=== PATIENT | male | born 1950 | race Caucasian/White ===

== ENCOUNTER 2024-05-18 09:52 | Inpatient (IN) ==
[2024-05-18] MEDS: SODIUM CHLORIDE 0.9% 1,000 ML IV SCH (10:22)
[2024-05-18] MEDS: ONDANSETRON INJ 2 MG/ML 2 ML VIAL IV STA (10:23)
[2024-05-18] MEDS: HYDROmorphone INJ 0.5 MG/0.5 ML SYR IV PRN (10:23)
[2024-05-18] MEDS: OPTIRAY 320 100ml IV ONE (10:33)
[2024-05-18 10:34] LABS: iSTAT Creatinine 1.2 mg/dl (0.6-1.3); iSTAT Hemoglobin 15.3 g/dl (14.0-18.0); iSTAT Ionized Calcium 1.19 mmol/l (1.12-1.32)
[2024-05-18 10:41] LABS: Basophils # (auto) 0.04 K/uL (0.00-0.20); Basophils % (auto) 0.3 %; Eosinophils # (auto) 0.02 K/uL (0.00-0.50); Eosinophils % (auto) 0.2 %; Hematocrit (blood only) 42.1 % (42.0-52.0); Hemoglobin 14.7 g/dl (14.0-18.0); Immature Granulocytes # (auto) 0.07 K/uL (0.01-0.20); Immature Granulocytes % (auto) 0.6 %; Lymphocytes # (auto) 1.11 K/uL (1.20-3.40); Mean Corpuscular Hemoglobin 34.4 pg (25.0-34.0); Mean Corpuscular Hgb Conc 34.9 g/dL (32.0-36.0); Mean Corpuscular Volume 98.6 fL (80.0-100.0); Mean Platelet Volume 9.9 fL (9.4-12.4); Monocytes # (auto) 0.51 K/uL (0.11-0.59); Monocytes % (auto) 4.1 %; Neutrophils # (auto) 10.55 K/uL (1.40-6.50); Neutrophils % (auto) 85.8 %; Platelet Count 218 K/uL (130-400); RDW Standard Deviation 46.7 fL (36.4-46.3); Red Blood Count 4.27 M/uL (4.70-6.10)
[2024-05-18 10:43] LABS: Alanine Aminotransferase 21 U/L (7-52); Albumin Globulin Ratio 1.6 (0.9-2); Albumin Level 4.5 gm/dl (3.4-5.0); Alkaline Phosphatase 120 U/L (34-104); Anion Gap 9 (3-11); Aspartate Aminotransferase 24 U/L (13-39); Bilirubin,Total 0.5 mg/dl (0.2-1.0); Blood Urea Nitrogen 16 mg/dl (6-23); Calcium 9.8 mg/dl (8.6-10.3); Carbon Dioxide 25 mmol/L (21-32); Chloride 103 mmol/L (98-107); Est GFR (African American) 73.5 ml/min; Est GFR (Non-African American) 63.4 ml/min; Globulin 2.8 gm/dl (2.5-4.0); Glucose 154 mg/dl (70-99(Fasting)); Potassium 4.8 mmol/L (3.5-5.1); Sodium 137 mmol/L (136-145); Total Protein 7.3 gm/dl (6.0-8.3)
[2024-05-18 11:07] LABS: Appearance Urine Clear (Clear); Bacteria Urine Automated None Seen (None Seen); Bilirubin Urine Negative (Negative); Blood Urine 1+ (Negative); Cast Urine Automated 0-2 /lpf (0-2); Color Urine Yellow; Epithelial Cell Urine Auto 0-2 /hpf (0-2); Glucose Urine UA Negative (Negative); Ketones Urine Trace (Negative); Leukocyte Esterase Urine Negative (Negative); Nitrite Urine Negative (Negative); Protein Urine Negative (Negative); Specific Gravity Urine 1.034 (1.000-1.030); Urobilinogen Urine Negative (Negative); WBC Urine Automated 0-5 /hpf (0-5)
--- NOTE | 2024-05-18 11:09 | CT Scan Report ---
CT head/brain wo con CLINICAL HISTORY: 73 years-old Male with Trauma. Acute head trauma status post fall TECHNIQUE: Multiple axial CT images of the head were obtained without contrast. A dose lowering tech nique was utilized adhering to the principles of ALARA. COMPARISON: CT cervical spine of same day FINDINGS: No acute intracranial hemorrhage, midline shift, intracranial mass, hydrocephalus, territorial ischem ia or abnormal extra-axial collection. Involutional changes with suggestion of chronic microvascular ischemic disease. The calvarium is intact. The paranasal sinuses, mastoid air cells, and middle ear cavities are clear . IMPRESSION: No acute intracranial abnormality or calvarial fracture. ACT 112: Negative or not required by law. The above report was generated using voice recognition software. It may contain grammatical, syntax o r spelling errors. Electronically signed by: Cameron Connolly M.D. 05/18/2024 11:07 AM
--- NOTE | 2024-05-18 11:13 | CT Scan Report ---
CT cervical spine wo con CLINICAL HISTORY: 73 years-old Male with Trauma. Acute neck injury COMPARISON: None. TECHNIQUE: Multiple axial CT images of the cervical spine were obtained without contrast. A dose low ering technique was utilized adhering to the principles of ALARA. FINDINGS: Multilevel degenerative changes. No acute fracture or subluxation identified. The cervical soft tissues appear unremarkable. No acute fracture or subluxation. Partially imaged ri ght apical 2.4 cm nodular density. IMPRESSION: 1. No acute cervical spine fracture or subluxation. 2. Partially imaged right upper lobe opacity. Please refer to the same day chest CT for additional fi ndings. ACT 112: Negative or not required by law. The above report was generated using voice recognition software. It may contain grammatical, syntax o r spelling errors. Electronically signed by: Cameron Connolly M.D. 05/18/2024 11:10 AM
--- NOTE | 2024-05-18 11:21 | CT Scan Report ---
CHEST CT WITH CONTRAST; CT ABDOMEN AND PELVIS WITH IV CONTRAST ONLY CT DOSE: 3286.91 mGy.cm HISTORY: Acute chest and abdominal trauma trauma TECHNIQUE: Multiaxial CT images of the chest, abdomen and pelvis were performed following the IV admi nistration of 94 cc of Optiray. A dose lowering technique was utilized adhering to the principles o f ALARA. COMPARISON: Chest radiograph 10/03/2010 FINDINGS: CT CHEST: Unremarkable thyroid. Borderline enlarged mediastinal and hilar lymph nodes measure up to 1 1 mm in the subcarinal distribution. Heart is normal in size without pericardial effusion. Extensive coronary artery calcifications. No thoracic aortic aneurysm. Unremarkable opacifies only artery. No pneumothorax region. Multifocal groundglass and alveolar opacities are noted predominantly within the right lower lobe and to a lesser extent within the right upper lobe and left lung. 5 mm fissural nodule the right middle lobe on image 128 suggestive of a benign lymph node. Right basilar mucous plu gging with tracheobronchial secretions. Unremarkable soft tissues. Healed chronic sternal and right r ib fractures. No definite acute fracture identified. CT ABDOMEN/PELVIS: No free air. Unremarkable spleen, pancreas and adrenal glands. Distended gallbladder with phthisis, i ntrahepatic and extrahepatic biliary ductal dilation. The common bile duct measures 10 mm transversel y. No definite choledocholithiasis identified. Patency of the hepatic and portal veins. No hydronephrosis. Prostamegaly. Nonspecific urinary bladder wall thickening. Atherosclerosis of the aorta without aneurysm. Infrarenal ectasia measuring up to 2.7 cm. Small fat filled umbilical hernia. No lymphadenopathy. Tiny hiatal hernia with mild distal esophageal wall thickening. Moderate colonic fecal retention. Normal appendix. No acute fracture. IMPRESSION: 1. Multifocal airspace opacities which are most pronounced in the right lower lobe may represent aspi ration versus multifocal pneumonia. 2. No acute posttraumatic intrathoracic, intra-abdominal or intrapelvic abnormality identified. 3. Distended gallbladder with cholelithiasis, intrahepatic and extrahepatic biliary ductal dilation. Correlate with serum bilirubin. 4. No bowel obstruction or bowel wall thickening. 5. Colonic diverticulosis. ACT 112: Negative or not required by law. Electronically signed by: Cameron Connolly M.D. 05/18/2024 11:19 AM
[2024-05-18] MEDS: cefTRIAXone SODIUM 2,000 MG/50 ML BAG IV STA (12:20)
--- NOTE | 2024-05-18 13:15 | Emergency Department Note ---
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 (closed head injury), Cervical strain, acute, Acute confusion Forms Stand Alone Forms: My [facility] Prescriptions Prescriptions: No Action furosemide 40 mg tablet 40 mg PO DAILY carvedilol 6.25 mg tablet 6.25 mg PO BID famotidine 40 mg tablet 40 mg PO DAILY citalopram 20 mg tablet 20 mg PO DAILY potassium chloride [Klor-Con M20] 20 mEq tablet,ER particles/crystals 20 meq PO DAILY tamsulosin 0.4 mg capsule 0.4 mg PO DAILY flecainide 50 mg tablet 50 mg PO BID lorazepam 1 mg tablet 1 mg PO TID tadalafil 10 mg tablet 10 mg PO DAILY Eliquis 5 mg tablet 5 mg PO BID oxycodone [OxyContin] 80 mg tablet,oral only,ext.rel.12 hr 80 mg PO BID PRN (Reason: Pain) Rolaids (calcium carbonate) 550 mg Tablet,Chewable 1,100 mg PO DAILY Referrals Referrals: Rodolfo Calix [Primary Care Provider] -
[2024-05-18] MEDS: DOXYCYCLINE HYCLATE 100 MG in DEXTROSE 5% MINI-B 100 ML IV STA (13:19)
[2024-05-18 13:36] LABS: Adenovirus PCR Not Detected (NotDetected); Bordetella parapertussis PCR Not Detected (NotDetected); Bordetella pertussis PCR Not Detected (NotDetected); Chlamydia pneumoniae PCR Not Detected (NotDetected); Coronavirus 229E PCR Not Detected (NotDetected); Coronavirus CoV-2 (COVID19)PCR Not Detected (NotDetected); Coronavirus HKU1 PCR Not Detected (NotDetected); Coronavirus NL63 PCR Not Detected (NotDetected); Coronavirus OC43PCR Not Detected (NotDetected); Human Metapneumovirus PCR Not Detected (NotDetected); Influenza A PCR Not Detected (NotDetected); Influenza B PCR Not Detected (NotDetected); Mycoplasma pneumoniae PCR Not Detected (NotDetected); Parainfluenza Virus 1 PCR Not Detected (NotDetected); Parainfluenza Virus 2 PCR Not Detected (NotDetected); Parainfluenza Virus 3 PCR Not Detected (NotDetected); Parainfluenza Virus 4 PCR Not Detected (NotDetected); Respiratory Syncytial VirusPCR Not Detected (NotDetected); Rhinovirus/Enterovirus PCR Not Detected (NotDetected)
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
[2024-05-18] MEDS: KETOROLAC TROMETHAMINE 15 MG/ML VIAL IV ONE ×2 (14:45→23:35)
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
[2024-05-18] MEDS ORDERED: AZITHROMYCIN 500 MG in DEXTROSE 5% 250 ML IV SCH (18:00)
[2024-05-18] MEDS: oxyCODONE HCL IR 5 MG TAB (IMMEDIATE RELEASE) PO PRN (18:38)
[2024-05-18] MEDS: TAMSULOSIN HCL 0.4 MG CAP PO SCH (18:39)
[2024-05-18] MEDS: LORazepam 1 MG TAB PO SCH (18:39)
[2024-05-18] MEDS: POTASSIUM CHLORIDE CRTAB 20 MEQ TABCR PO SCH (18:39)
--- NOTE | 2024-05-18 20:31 | Electrocardiogram Report ---
Test Reason : Blood Pressure : / mmHG Vent. Rate : 118 BPM Atrial Rate : 000 BPM P-R Int : 000 ms QRS Dur : 086 ms QT Int : 318 ms P-R-T Axes : 000 -26 -04 degrees QTc Int : 445 ms Atrial fibrillation with rapid ventricular response Nonspecific ST abnormality Abnormal ECG When compared with ECG of 28-SEP-2010 21:38, Atrial fibrillation has replaced Sinus rhythm Vent. rate has increased BY 42 BPM Confirmed by Petar Lilly ([id number]) on 05/18/2024 8:31:17 PM Referred By: REFERRED SELF Confirmed By:Petar Lilly
[2024-05-18] MEDS: ACETAMINOPHEN 500 MG TAB PO ONE (20:59)
[2024-05-18] MEDS: CITALOPRAM 20 MG TAB PO SCH (21:00)
[2024-05-18] MEDS: FLECAINIDE ACETATE 100 MG TABLET PO SCH (21:00)
[2024-05-18] MEDS: APIXABAN 5 MG TABLET PO SCH (21:02)
[2024-05-18] MEDS: FAMOTIDINE 40 MG TABLET PO SCH (21:02)
[2024-05-18] MEDS: carvediloL 6.25 MG TAB PO SCH (21:03)
[2024-05-18] MEDS: HYDROmorphone INJ 0.5 MG/0.5 ML SYR IV STA (22:22)
[2024-05-19] MEDS ORDERED: NALOXONE HCL 0.4 MG/1 ML VIAL/CARP IV PRN (00:36)
[2024-05-19] MEDS: HYDROmorphone INJ 1 MG/ML SYRINGE IV STA ×4 (01:00→16:34)
[2024-05-19] MEDS: DOXYCYCLINE HYCLATE 100 MG in D5W MINI-B 100 ML (Q12H) IV SCH (01:03)
[2024-05-19] MEDS ORDERED: MAGNESIUM HYDROXIDE SUSP 30 ML UDC PO PRN (05:56)
[2024-05-19] MEDS: MAGNESIUM HYDROXIDE SUSP 30 ML UDC PO ONE (06:36)
--- NOTE | 2024-05-19 06:36 | Communication Note ---
Date of Service: May 19, 2024 For refractory "9/10" neck pain overnight, patient received the following: -P.o. Tylenol 1000 mg -IV hydromorphone 0.5 mg -IV hydromorphone 1 mg x 3, and -IV Toradol 15 mg Reviewed patient's PDMP at home, patient takes OxyContin 80 mg twice daily (240 MME) for pain before administering IV hydromorphone 1 mg doses. Recommend schedule baseline analgesic (i.e. Tylenol 1000 mg every 8 hours), adjusting p.o. oxycodone dose from 10 mg every 6 hours as needed to be closer to home p.o. oxycodone dose. Resident Activity Tracking Resident Involvement: Resident Care Provided Care Provided: Adult Hospital Medicine
[2024-05-19 06:52] LABS: Hematocrit (blood only) 31.9 % (42.0-52.0); Hemoglobin 10.7 g/dl (14.0-18.0); Mean Corpuscular Hemoglobin 33.9 pg (25.0-34.0); Mean Corpuscular Hgb Conc 33.5 g/dL (32.0-36.0); Mean Corpuscular Volume 100.9 fL (80.0-100.0); Mean Platelet Volume 10.4 fL (9.4-12.4); Platelet Count 155 K/uL (130-400); RDW Coefficient of Variation 13.2 % (11.5-14.5); RDW Standard Deviation 49.1 fL (36.4-46.3); Red Blood Count 3.16 M/uL (4.70-6.10); White Blood Count 7.82 K/ul (4.8-10.8)
[2024-05-19 07:21] LABS: BUN Creatinine Ratio 17.9 (10-20); Calcium 8.1 mg/dl (8.6-10.3); Creatinine Clr Calc Pharmacy 82.3 ml/min; Est GFR (African American) 91.7 ml/min; Est GFR (Non-African American) 79.1 ml/min; Potassium 3.9 mmol/L (3.5-5.1)
[2024-05-19] MEDS: KETOROLAC TROMETHAMINE 15 MG/ML VIAL IV PRN (07:54)
[2024-05-19] MEDS: CALCIUM CARBONATE 1250MG TAB PO SCH (07:55)
[2024-05-19] MEDS: oxyCODONE HCL 20 MG TABCR (OxyCONTIN) PO SCH (10:26)
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
[2024-05-19] MEDS: POLYETHYLENE (MIRALAX) 17 GM PACK PO SCH (12:00)
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
[2024-05-19] MEDS: cefTRIAXone SODIUM 2,000 MG/50 ML BAG IV SCH (13:16)
[2024-05-19] MEDS: CALCIUM CARBONATE 500 MG CHEWABLE TAB PO PRN (19:57)
[2024-05-19] MEDS: LORazepam 1 MG in SYRINGE 0.5 ML IV PRN (20:31)
[2024-05-19] MEDS ORDERED: Ativan IV Alcohol Withdrawal--Active Protocol IV PRN (22:08)
[2024-05-19] MEDS: LORazepam 2 MG in SYRINGE 1 ML IV PRN (22:53)
[2024-05-19] MEDS: LORazepam 3 MG in SYRINGE 1.5 ML IV PRN (23:29)
[2024-05-20] MEDS ORDERED: LORazepam 1 MG in SYRINGE 0.5 ML IV ONE (00:15)
[2024-05-20] MEDS: LORazepam 3 MG in SYRINGE 1.5 ML IV ONE (00:25)
[2024-05-20] MEDS: LORazepam 1 MG in SYRINGE 0.5 ML IV PRN (01:18)
[2024-05-20 07:31] LABS: Hematocrit (blood only) 33.7 % (42.0-52.0); Hemoglobin 11.1 g/dl (14.0-18.0); Mean Corpuscular Hemoglobin 33.8 pg (25.0-34.0); Mean Corpuscular Hgb Conc 32.9 g/dL (32.0-36.0); Mean Corpuscular Volume 102.7 fL (80.0-100.0); Mean Platelet Volume 10.3 fL (9.4-12.4); Platelet Count 190 K/uL (130-400); RDW Standard Deviation 49.4 fL (36.4-46.3); Red Blood Count 3.28 M/uL (4.70-6.10); White Blood Count 6.87 K/ul (4.8-10.8)
[2024-05-20 07:46] LABS: BUN Creatinine Ratio 15.5 (10-20); Calcium 8.8 mg/dl (8.6-10.3); Est GFR (African American) 83.1 ml/min; Est GFR (Non-African American) 71.7 ml/min; Potassium 4.1 mmol/L (3.5-5.1)
[2024-05-20] MEDS: FOLIC ACID 1 MG TAB PO SCH (09:03)
[2024-05-20] MEDS: THIAMINE HCL 100 MG TAB PO SCH (09:03)
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
[2024-05-20] MEDS: KETOROLAC TROMETHAMINE 15 MG/ML VIAL IV PRN (19:04)
[2024-05-20] MEDS: LACTATED RINGER'S 1,000 ML IV ONE (21:44)
[2024-05-20 22:25] LABS: BUN Creatinine Ratio 15.5 (10-20); Calcium 9.4 mg/dl (8.6-10.3); Est GFR (African American) 83.1 ml/min; Est GFR (Non-African American) 71.7 ml/min; Magnesium 2.1 mg/dl (1.7-2.4); Potassium 4.2 mmol/L (3.5-5.1)
[2024-05-21 06:29] LABS: Hematocrit (blood only) 33.6 % (42.0-52.0); Hemoglobin 11.2 g/dl (14.0-18.0); Mean Corpuscular Hemoglobin 33.8 pg (25.0-34.0); Mean Corpuscular Hgb Conc 33.3 g/dL (32.0-36.0); Mean Corpuscular Volume 101.5 fL (80.0-100.0); Mean Platelet Volume 10.4 fL (9.4-12.4); Platelet Count 213 K/uL (130-400); RDW Coefficient of Variation 12.8 % (11.5-14.5); RDW Standard Deviation 47.8 fL (36.4-46.3); Red Blood Count 3.31 M/uL (4.70-6.10); White Blood Count 5.95 K/ul (4.8-10.8)
--- NOTE | 2024-05-21 06:33 | Electrocardiogram Report ---
Test Reason : Blood Pressure : / mmHG Vent. Rate : 121 BPM Atrial Rate : 117 BPM P-R Int : 000 ms QRS Dur : 090 ms QT Int : 278 ms P-R-T Axes : 000 -19 -23 degrees QTc Int : 394 ms Poor data quality, interpretation may be adversely affected Atrial fibrillation with rapid ventricular response Nonspecific ST abnormality Abnormal ECG When compared with ECG of 18-MAY-2024 10:20, ST now depressed in Anterolateral leads Confirmed by Petar Lilly ([id number]) on 05/21/2024 6:33:26 AM Referred By: REFERRED SELF Confirmed By:Petar Lilly
[2024-05-21 06:49] LABS: Calcium 8.7 mg/dl (8.6-10.3); Creatinine Clr Calc Pharmacy 72.2 ml/min; Est GFR (African American) 86.2 ml/min; Est GFR (Non-African American) 74.3 ml/min; Potassium 4.2 mmol/L (3.5-5.1)
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
[2024-05-21] MEDS: bisacodyL 10 MG SUPP PR STA (19:04)
[2024-05-21] MEDS: DOXYCYCLINE HYCLATE 100 MG CAP PO SCH (21:03)
[2024-05-22] MEDS: HYDROmorphone INJ 1 MG/ML SYRINGE IV STA (04:09)
[2024-05-22] MEDS: KETOROLAC TROMETHAMINE 15 MG/ML VIAL IV ONE (08:20)
[2024-05-22 09:20] LABS: BUN Creatinine Ratio 15.8 (10-20); Calcium 8.8 mg/dl (8.6-10.3); Creatinine Clr Calc Pharmacy 71.5 ml/min; Est GFR (African American) 85.1 ml/min; Est GFR (Non-African American) 73.4 ml/min; Potassium 4.4 mmol/L (3.5-5.1)
[2024-05-22] MEDS: cloNIDine HCL 0.1 MG TAB PO SCH (09:36)
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
[2024-05-22] MEDS: OLANZapine 10 MG/2.1 ML SDV IM STA (17:42)
[2024-05-22] MEDS: OLANZAPINE 2.5 MG TAB PO SCH (20:30)
[2024-05-22] MEDS: LORazepam 2 MG in SYRINGE 1 ML IV STA (22:09)
[2024-05-23] MEDS: OLANZapine 10 MG/2.1 ML SDV IM STA ×3 (00:51→23:55)
[2024-05-23 06:35] LABS: Hematocrit (blood only) 32.6 % (42.0-52.0); Hemoglobin 10.9 g/dl (14.0-18.0); Mean Corpuscular Hemoglobin 33.5 pg (25.0-34.0); Mean Corpuscular Hgb Conc 33.4 g/dL (32.0-36.0); Mean Corpuscular Volume 100.3 fL (80.0-100.0); Mean Platelet Volume 9.6 fL (9.4-12.4); Platelet Count 232 K/uL (130-400); RDW Coefficient of Variation 12.7 % (11.5-14.5); RDW Standard Deviation 46.9 fL (36.4-46.3); Red Blood Count 3.25 M/uL (4.70-6.10)
[2024-05-23 06:58] LABS: Calcium 8.7 mg/dl (8.6-10.3); Potassium 4.4 mmol/L (3.5-5.1)
[2024-05-23 07:03] LABS: BUN Creatinine Ratio 15.1 (10-20); Creatinine Clr Calc Pharmacy 68.1 ml/min; Est GFR (African American) 80.3 ml/min; Est GFR (Non-African American) 69.3 ml/min
[2024-05-23] MEDS: LORazepam 1 MG TAB PO SCH (08:19)
--- NOTE | 2024-05-23 10:08 | Hospitalist Consultation ---
Date of Consultation May 23, 2024 History of Present Illness Attending Physician: Herbert Rutherford MD Allergies Allergy/AdvReac Type Severity Reaction Status Date / Time gabapentin Allergy Unknown Verified 05/18/24 13:27 Hydantoins Allergy Unknown Verified 05/18/24 13:27 phenytoin Allergy Unknown Verified 05/18/24 13:27 Home Medications Medication Instructions Recorded Confirmed Type apixaban 5 mg tablet (Eliquis) 5 mg PO BID 05/18/24 05/18/24 History calcium carbonate 550 mg chewable 1,100 mg PO DAILY 05/18/24 05/18/24 History tablet carvedilol 6.25 mg tablet 6.25 mg PO BID 05/18/24 05/18/24 History citalopram 20 mg tablet 20 mg PO DAILY 05/18/24 05/18/24 History famotidine 40 mg tablet 40 mg PO DAILY 05/18/24 05/18/24 History flecainide 50 mg tablet 50 mg PO BID 05/18/24 05/18/24 History furosemide 40 mg tablet 40 mg PO DAILY 05/18/24 05/18/24 History lorazepam 1 mg tablet 1 mg PO TID 05/18/24 05/18/24 History oxycodone 80 mg tablet,crush 80 mg PO BID PRN Pain 05/18/24 05/18/24 History resistant,extended release 12 hr (OxyContin) potassium chloride 20 mEq 20 meq PO DAILY 05/18/24 05/18/24 History tablet,extended release(part/cryst) (Klor-Con M) tadalafil 10 mg tablet 10 mg PO DAILY 05/18/24 05/18/24 History tamsulosin 0.4 mg capsule 0.4 mg PO DAILY 05/18/24 05/18/24 History Patient History Social History Smoking Status: Never smoker Tobacco Type: Smokeless Tobacco (Dip or Chew) Do You Dip or Chew Tobacco: Yes; Hx Alcohol Use: Yes Alcohol type: wine Hx Substance Use: No Preferred Language: Palestinian Communication Ability: Impaired Care Technician Required: No Beliefs That Will Affect Care: None Current Living Situation: Spouse Feels Safe at Home: Yes Assistive Devices: Cane and Walker Review of Systems Review of Systems: Constitutional: No Weight Change, No Fever, No Chills, No Night Sweats, No Fatigue, No Malaise ENT/Mouth: No Hearing Changes, No Ear Pain, No Nasal Congestion, No Sinus Pain, No Hoarseness, No sore throat, No Rhinorrhea Eyes: No Eye Pain, No Swelling, No Redness, No Foreign Body, No Discharge, No Vision Changes Cardiovascular: No Chest Pain, No SOB, No PND, No Dyspnea on Exertion, No Orthopnea, No Claudication, No Edema, No Palpitations Respiratory: No Cough, No Sputum, No Wheezing, No Smoke Exposure, No Dyspnea Gastrointestinal: No Nausea, No Vomiting, No Diarrhea, No Constipation, No Pain, No Heartburn, No Anorexia, No Dysphagia, No Hematochezia, No Melena, No Flatulence, No Jaundice Genitourinary: No Dysmenorrhea, No DUB, No Dyspareunia, No Dysuria, No Urinary Frequency, No Hematuria, No Urinary Incontinence, No Urgency, No Flank Pain, No Urinary Flow Changes, No Hesitancy Musculoskeletal: No Arthralgias, No Myalgias, No Joint Swelling, No Joint Stiffness, No Back Pain, No Neck Pain, No Injury History Skin: No Skin Lesions, No Pruritis, No Hair Changes, No Breast/Skin Changes, No Nipple Discharge Neuro: No Weakness, No Numbness, No Paresthesias, No Loss of Consciousness, No Syncope, No Dizziness, No Headache, No Coordination Changes, No Recent Falls Psych: No Anxiety/Panic, No Depression, No Insomnia, No Personality Heme/Lymph: No Bruising, No Bleeding, No Lymphadenopathy Endocrine: No Polyuria, No Polydipsia, No Temperature Intolerance Constitutional: no sweats and no weakness Results & Data Results & Data Vital Signs (Past 12 Hours) Vital Signs Temp Pulse Pulse Pulse Resp BP BP 05/23/24 08:24 57 L 175/72 H 05/23/24 07:11 36.4 C L 58 L 21 191/76 H 05/23/24 03:21 60 22 162/78 H 05/22/24 23:17 47 L Pulse Ox O2 Del Method O2 Flow Rate 05/23/24 08:24 05/23/24 07:11 96 Nasal Cannula 3 05/23/24 03:21 92 Nasal Cannula 3 05/22/24 23:17 PG Care Time/CCT Total # of Minutes Spent Total Time Spent with Patient: Total time spent is greater than 50% in coordination of care (as documented) at patient's floor/unit and/or counseling patient: Coding
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
[2024-05-23] MEDS: ACETAMINOPHEN 325 MG TAB PO ONE (16:14)
[2024-05-23] MEDS: OLANZAPINE 2.5 MG TAB PO STA (18:20)
[2024-05-23] MEDS: traZODone HCL 50 MG TAB PO ONE (22:40)
[2024-05-24] MEDS ORDERED: CALCIUM GLUCONATE 1,000 MG/60 ML BAG IV SCH (00:30)
[2024-05-24 06:05] LABS: BUN Creatinine Ratio 13.3 (10-20); Creatinine Clr Calc Pharmacy 63.9 ml/min; Est GFR (African American) 74.3 ml/min; Est GFR (Non-African American) 64.1 ml/min
[2024-05-24] MEDS: cloNIDine HCL 0.1 MG TAB PO SCH (08:48)
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
[2024-05-24] MEDS: amLODIPine BESYLATE 5 MG TAB PO ONE (12:01)
[2024-05-25] MEDS: OLANZapine 10 MG/2.1 ML SDV IM PRN (00:51)
[2024-05-25 07:03] LABS: BUN Creatinine Ratio 12.9 (10-20); Calcium 8.9 mg/dl (8.6-10.3); Creatinine Clr Calc Pharmacy 71.5 ml/min; Est GFR (African American) 85.1 ml/min; Est GFR (Non-African American) 73.4 ml/min
[2024-05-25] MEDS: amLODIPine BESYLATE 5 MG TAB PO SCH (09:40)
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
[2024-05-25] MEDS: amLODIPine BESYLATE 5 MG TAB PO ONE (12:47)
[2024-05-26] MEDS: OLANZapine 10 MG/2.1 ML SDV IM STA ×2 (01:19→02:54)
[2024-05-26 07:31] LABS: Hematocrit (blood only) 39.1 % (42.0-52.0); Hemoglobin 13.3 g/dl (14.0-18.0); Mean Corpuscular Hemoglobin 33.7 pg (25.0-34.0); Mean Platelet Volume 9.6 fL (9.4-12.4); Platelet Count 233 K/uL (130-400); RDW Coefficient of Variation 12.1 % (11.5-14.5); RDW Standard Deviation 44.6 fL (36.4-46.3); Red Blood Count 3.95 M/uL (4.70-6.10); White Blood Count 6.43 K/ul (4.8-10.8)
[2024-05-26 07:47] LABS: BUN Creatinine Ratio 15.5 (10-20); Calcium 8.8 mg/dl (8.6-10.3); Est GFR (African American) 100.7 ml/min; Est GFR (Non-African American) 86.9 ml/min
[2024-05-26] MEDS: amLODIPine BESYLATE 5 MG TAB PO SCH (09:01)
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
[2024-05-26] MEDS: ACETAMINOPHEN 325 MG TAB PO ONE (15:41)
[2024-05-26] MEDS: LORazepam 1 MG TAB PO SCH (20:02)
[2024-05-27] MEDS: oxyCODONE HCL 20 MG TABCR (OxyCONTIN) PO SCH (09:08)
[2024-05-27 09:27] LABS: Calcium 9.2 mg/dl (8.6-10.3); Potassium 4.5 mmol/L (3.5-5.1)
[2024-05-27 09:33] LABS: BUN Creatinine Ratio 17.6 (10-20); Creatinine Clr Calc Pharmacy 79.4 ml/min; Est GFR (African American) 96.6 ml/min; Est GFR (Non-African American) 83.3 ml/min
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
[2024-05-27] MEDS: KETOROLAC TROMETHAMINE 15 MG/ML VIAL IV PRN (11:31)
[2024-05-27 13:02] LABS: Mycoplasma pneumoniae Ab, IgG 2.03 (<=0.90); Mycoplasma pneumoniae Ab, IgM 699 U/mL (<770); Pneumococcal IgG Type 1 0.1 mcg/mL (>=1.0); Pneumococcal IgG Type 12 (12F) <0.1 mcg/mL (>=1.0); Pneumococcal IgG Type 14 <0.1 mcg/mL (>=1.0); Pneumococcal IgG Type 17 (17F) 0.1 mcg/mL (>=1.0); Pneumococcal IgG Type 19 (19F) 0.1 mcg/mL (>=1.0); Pneumococcal IgG Type 2 <0.1 mcg/mL (>=1.0); Pneumococcal IgG Type 20 1.4 mcg/mL (>=1.0); Pneumococcal IgG Type 22 (22F) 0.1 mcg/mL (>=1.0); Pneumococcal IgG Type 23 (23F) <0.1 mcg/mL (>=1.0); Pneumococcal IgG Type 26 (6B) <0.1 mcg/mL (>=1.0); Pneumococcal IgG Type 3 <0.1 mcg/mL (>=1.0); Pneumococcal IgG Type 34 (10A) <0.1 mcg/mL (>=1.0); Pneumococcal IgG Type 4 <0.1 mcg/mL (>=1.0); Pneumococcal IgG Type 43 (11A) <0.1 mcg/mL (>=1.0); Pneumococcal IgG Type 5 <0.1 mcg/mL (>=1.0); Pneumococcal IgG Type 51 (7F) <0.1 mcg/mL (>=1.0); Pneumococcal IgG Type 54 (15B) 1.2 mcg/mL (>=1.0); Pneumococcal IgG Type 56 (18C) 1.4 mcg/mL (>=1.0); Pneumococcal IgG Type 57 (19A) 0.2 mcg/mL (>=1.0); Pneumococcal IgG Type 68 (9V) <0.1 mcg/mL (>=1.0); Pneumococcal IgG Type 70 (33F) 0.2 mcg/mL (>=1.0); Pneumococcal IgG Type 8 0.1 mcg/mL (>=1.0); Pneumococcal IgG Type 9 (9N) 1.5 mcg/mL (>=1.0)
--- NOTE | 2024-05-27 17:02 | Electrocardiogram Report ---
Test Reason : Blood Pressure : */* mmHG Vent. Rate : 148 BPM Atrial Rate : 141 BPM P-R Int : * ms QRS Dur : 84 ms QT Int : 314 ms P-R-T Axes : * -14 44 degrees QTcB Int : 492 ms Poor data quality, interpretation may be adversely affected Atrial fibrillation with rapid ventricular response ST depression, consider subendocardial injury Abnormal ECG When compared with ECG of 20-MAY-2024 17:30, Nonspecific T wave abnormality has replaced inverted T waves in Inferior leads Confirmed by Chilango Dickinson ([id number] on 05/27/2024 5:02:09 PM Referred By: REFERRED SELF Confirmed By: Chilango Dickinson
[2024-05-27] MEDS: carvediloL 12.5 MG TAB PO SCH (20:58)
[2024-05-28 07:10] LABS: Hematocrit (blood only) 39.1 % (42.0-52.0); Hemoglobin 13.3 g/dl (14.0-18.0); Mean Corpuscular Hemoglobin 33.2 pg (25.0-34.0); Mean Corpuscular Volume 97.5 fL (80.0-100.0); Mean Platelet Volume 10.1 fL (9.4-12.4); Platelet Count 320 K/uL (130-400); RDW Coefficient of Variation 12.2 % (11.5-14.5); RDW Standard Deviation 44.6 fL (36.4-46.3); Red Blood Count 4.01 M/uL (4.70-6.10); White Blood Count 7.52 K/ul (4.8-10.8)
[2024-05-28 07:34] LABS: BUN Creatinine Ratio 15.8 (10-20); Calcium 9.7 mg/dl (8.6-10.3); Est GFR (African American) 91.7 ml/min; Est GFR (Non-African American) 79.1 ml/min; Potassium 4.2 mmol/L (3.5-5.1)
[2024-05-28] MEDS ORDERED: LORazepam 1 MG TAB PO PRN (08:13)
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
[2024-05-28] MEDS: carvediloL 12.5 MG TAB PO ONE (09:02)
[2024-05-28] MEDS: oxyCODONE HCL 20 MG TABCR (OxyCONTIN) PO ONE ×2 (09:57→16:41)
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
[2024-05-28] MEDS: carvediloL 3.125 MG TAB PO ONE (14:00)
[2024-05-28 15:10] LABS: Magnesium 2.1 mg/dl (1.7-2.4)
--- NOTE | 2024-05-28 15:26 | Communication Note ---
Date of Service: May 28, 2024 Updated daughter Jory on plan of care. 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 Concerns about alcohol use/discussed moving to monitored bed for closer monitoring and management of his afib, also checking ECHO (tech in room now). RN to give dose toradol/lidocaine patch ordered for neck and will monitor. No CP/SOB at present. Remains afib, rates 90-120s on monitor. Adding lopressor IV as needed. Daughter also reports patient does chew decent amount of snuff, will also order nicotine patch.
--- NOTE | 2024-05-28 16:23 | XCELERA ---
[id number]
[2024-05-28] MEDS: LIDOCAINE 5% 1 PATCH TD SCH (16:40)
[2024-05-28] MEDS: NICOTINE 21 MG/24 HR TDSY TD SCH (16:41)
[2024-05-28] MEDS: PANTOprazole 40 MG TAB PO SCH (16:41)
--- NOTE | 2024-05-28 17:28 | Electrocardiogram Report ---
Test Reason : Blood Pressure : */* mmHG Vent. Rate : 135 BPM Atrial Rate : 270 BPM P-R Int : * ms QRS Dur : 108 ms QT Int : 354 ms P-R-T Axes : * -9 56 degrees QTcB Int : 531 ms Atrial flutter with 2:1 A-V conduction Abnormal ECG When compared with ECG of 26-May-2024 08:59, Atrial flutter has replaced Atrial fibrillation Confirmed by Chilango Dickinson ([id number]) on 05/28/2024 5:28:17 PM Referred By: REFERRED SELF Confirmed By: Chilango Dickinson
[2024-05-28] MEDS: THIAMINE HCL 200 MG in SODIUM CHLORIDE 0.9% 50 ML IV SCH (17:50)
[2024-05-28] MEDS: oxyCODONE HCL 20 MG TABCR (OxyCONTIN) PO SCH (20:07)
[2024-05-28] MEDS ORDERED: carvediloL 25 MG TAB PO SCH (21:00)
[2024-05-29] MEDS: METOPROLOL TARTRATE 1 MG/ML VIAL IV PRN (04:49)
[2024-05-29 07:59] LABS: Basophils # (auto) 0.04 K/uL (0.00-0.20); Basophils % (auto) 0.7 %; Eosinophils % (auto) 3.5 %; Hematocrit (blood only) 37.2 % (42.0-52.0); Hemoglobin 12.4 g/dl (14.0-18.0); Immature Granulocytes # (auto) 0.03 K/uL (0.01-0.20); Immature Granulocytes % (auto) 0.5 %; Lymphocytes % (auto) 30.1 %; Mean Corpuscular Hemoglobin 33.1 pg (25.0-34.0); Mean Corpuscular Hgb Conc 33.3 g/dL (32.0-36.0); Mean Corpuscular Volume 99.2 fL (80.0-100.0); Mean Platelet Volume 9.9 fL (9.4-12.4); Monocytes # (auto) 0.38 K/uL (0.11-0.59); Monocytes % (auto) 6.7 %; Neutrophils # (auto) 3.29 K/uL (1.40-6.50); Neutrophils % (auto) 58.5 %; Platelet Count 287 K/uL (130-400); RDW Coefficient of Variation 12.5 % (11.5-14.5); RDW Standard Deviation 45.8 fL (36.4-46.3); Red Blood Count 3.75 M/uL (4.70-6.10); White Blood Count 5.64 K/ul (4.8-10.8)
[2024-05-29 08:11] LABS: Albumin Globulin Ratio 1.5 (0.9-2); Albumin Level 3.7 gm/dl (3.4-5.0); BUN Creatinine Ratio 21.7 (10-20); Bilirubin,Total 0.4 mg/dl (0.2-1.0); Calcium 9.1 mg/dl (8.6-10.3); Est GFR (African American) 101.2 ml/min; Est GFR (Non-African American) 87.3 ml/min; Globulin 2.4 gm/dl (2.5-4.0); Magnesium 2.1 mg/dl (1.7-2.4); Potassium 3.9 mmol/L (3.5-5.1); Total Protein 6.1 gm/dl (6.0-8.3)
[2024-05-29] MEDS: CYANOCOBALAMIN (B-12) 500 MCG TABLET PO SCH (08:53)
--- NOTE | 2024-05-29 09:02 | Electrocardiogram Report ---
Test Reason : Blood Pressure : */* mmHG Vent. Rate : 53 BPM Atrial Rate : 53 BPM P-R Int : 154 ms QRS Dur : 92 ms QT Int : 470 ms P-R-T Axes : 46 0 49 degrees QTcB Int : 441 ms Sinus bradycardia Otherwise normal ECG When compared with ECG of 28-May-2024 08:30, Sinus rhythm has replaced Atrial flutter Vent. rate has decreased by [address] no longer elevated in Inferior leads Confirmed by Chilango Dickinson ([id number]) on 05/29/2024 9:01:49 AM Referred By: REFERRED SELF Confirmed By: Chilango Dickinson
[2024-05-29] MEDS: carvediloL 6.25 MG TAB PO SCH (11:23)
[2024-05-29] MEDS: KETOROLAC TROMETHAMINE 15 MG/ML VIAL IV PRN (11:23)
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
[2024-05-29] MEDS: HYDROmorphone INJ 1 MG/ML SYRINGE IV STA ×2 (13:26→21:58)
[2024-05-29] MEDS: PNEUMOCOCCAL VACCINE (PCV20) 20-VAL CONJ-DIP CRM/PF 0.5 ML SYR IM ONE (17:15)
[2024-05-29] MEDS: ACETAMINOPHEN 325 MG TAB PO PRN (19:58)
[2024-05-30] MEDS: THIAMINE HCL 100 MG TAB PO SCH (07:13)
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
[2024-05-30] MEDS: MELATONIN 3 MG TAB PO PRN (22:46)
[2024-05-30] MEDS: OLANZapine 10 MG/2.1 ML SDV IM STA (23:35)
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
[2024-05-31] MEDS: OLANZapine 10 MG/2.1 ML SDV IM PRN (18:27)
[2024-05-31] MEDS: OLANZapine 5 MG TABLET PO SCH (20:39)
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
[2024-06-02] MEDS: carvediloL 3.125 MG TAB PO SCH (17:12)
[2024-06-02] MEDS: traMADol HCL 50 MG TABLET PO PRN (17:12)
[2024-06-03] MEDS: OLANZapine 10 MG/2.1 ML SDV IM STA (01:22)
[2024-06-03] MEDS: LORazepam 1 MG in SYRINGE 0.5 ML IV STA ×2 (05:15→22:59)
[2024-06-03 09:31] LABS: BUN Creatinine Ratio 17.2 (10-20); Calcium 9.4 mg/dl (8.6-10.3); Creatinine Clr Calc Pharmacy 72.9 ml/min; Est GFR (African American) 87.2 ml/min; Est GFR (Non-African American) 75.2 ml/min; Magnesium 2.2 mg/dl (1.7-2.4); Potassium 4.6 mmol/L (3.5-5.1)
[2024-06-03 09:32] LABS: Hematocrit (blood only) 36.2 % (42.0-52.0); Hemoglobin 11.9 g/dl (14.0-18.0); Mean Corpuscular Hgb Conc 32.9 g/dL (32.0-36.0); Mean Corpuscular Volume 100.3 fL (80.0-100.0); Platelet Count 332 K/uL (130-400); RDW Coefficient of Variation 12.1 % (11.5-14.5); RDW Standard Deviation 45.4 fL (36.4-46.3); Red Blood Count 3.61 M/uL (4.70-6.10); White Blood Count 5.42 K/ul (4.8-10.8)
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
[2024-06-03] MEDS: oxyCODONE HCL IR 5 MG TAB (IMMEDIATE RELEASE) PO PRN (15:06)
[2024-06-03] MEDS: OLANZapine 10 MG/2.1 ML SDV IM ONE (23:54)
[2024-06-04] MEDS: FUROSEMIDE 40 MG TAB PO SCH (08:05)
[2024-06-04] MEDS: CITALOPRAM 20 MG TAB PO SCH (08:05)
[2024-06-04 09:03] LABS: Basophils # (auto) 0.04 K/uL (0.00-0.20); Basophils % (auto) 0.4 %; Eosinophils # (auto) 0.07 K/uL (0.00-0.50); Eosinophils % (auto) 0.7 %; Hematocrit (blood only) 42.1 % (42.0-52.0); Hemoglobin 14.2 g/dl (14.0-18.0); Immature Granulocytes # (auto) 0.04 K/uL (0.01-0.20); Immature Granulocytes % (auto) 0.4 %; Lymphocytes # (auto) 0.83 K/uL (1.20-3.40); Lymphocytes % (auto) 8.4 %; Mean Corpuscular Hgb Conc 33.7 g/dL (32.0-36.0); Mean Corpuscular Volume 97.9 fL (80.0-100.0); Mean Platelet Volume 9.6 fL (9.4-12.4); Monocytes # (auto) 0.52 K/uL (0.11-0.59); Monocytes % (auto) 5.3 %; Neutrophils # (auto) 8.37 K/uL (1.40-6.50); Neutrophils % (auto) 84.8 %; Platelet Count 352 K/uL (130-400); RDW Coefficient of Variation 12.1 % (11.5-14.5); RDW Standard Deviation 43.8 fL (36.4-46.3); White Blood Count 9.87 K/ul (4.8-10.8)
[2024-06-04 09:20] LABS: Albumin Globulin Ratio 1.4 (0.9-2); Albumin Level 4.2 gm/dl (3.4-5.0); BUN Creatinine Ratio 16.9 (10-20); Bilirubin,Total 0.4 mg/dl (0.2-1.0); Calcium 9.8 mg/dl (8.6-10.3); Creatinine Clr Calc Pharmacy 81.1 ml/min; Est GFR (African American) 98.3 ml/min; Est GFR (Non-African American) 84.8 ml/min; Magnesium 1.9 mg/dl (1.7-2.4); Potassium 4.6 mmol/L (3.5-5.1); Total Protein 7.2 gm/dl (6.0-8.3)
--- NOTE | 2024-06-04 10:38 | Electrocardiogram Report ---
Test Reason : Blood Pressure : */* mmHG Vent. Rate : 61 BPM Atrial Rate : 61 BPM P-R Int : 166 ms QRS Dur : 92 ms QT Int : 418 ms P-R-T Axes : 45 -7 36 degrees QTcB Int : 420 ms Normal sinus rhythm Normal ECG When compared with ECG of 29-May-2024 05:21, No significant change was found Confirmed by Boyd Coronado ([id number]) on 06/04/2024 10:38:32 AM Referred By: REFERRED SELF Confirmed By: Boyd Coronado
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
--- NOTE | 2024-06-04 19:15 | XRay Report ---
XR chest 2V PA/lateral CLINICAL HISTORY: f/u PNA, fever TECHNIQUE: 2 views of the chest were obtained. Comparison: Comparison is made to chest radiograph 10/03/[address] chest 05/18/2024 FINDINGS: No lines and tubes are seen. The cardiomediastinal silhouette is normal. Airspace opacities remain in the right lower lung. No evidence of pleural effusion or pneumothorax. IMPRESSION: Airspace opacities in the right lower lung are again seen compatible with pneumonia. ACT 112: Negative or not required by law. Electronically signed by: Raheel Blum M.D. 06/04/2024 7:14 PM
[2024-06-04] MEDS: LORazepam 1 MG TAB PO SCH (20:09)
[2024-06-05 08:24] LABS: Basophils # (auto) 0.04 K/uL (0.00-0.20); Basophils % (auto) 0.3 %; Eosinophils % (auto) 0.9 %; Hematocrit (blood only) 36.7 % (42.0-52.0); Hemoglobin 12.2 g/dl (14.0-18.0); Immature Granulocytes # (auto) 0.08 K/uL (0.01-0.20); Immature Granulocytes % (auto) 0.7 %; Lymphocytes # (auto) 1.15 K/uL (1.20-3.40); Lymphocytes % (auto) 9.9 %; Mean Corpuscular Hemoglobin 33.6 pg (25.0-34.0); Mean Corpuscular Hgb Conc 33.2 g/dL (32.0-36.0); Mean Corpuscular Volume 101.1 fL (80.0-100.0); Monocytes # (auto) 0.53 K/uL (0.11-0.59); Monocytes % (auto) 4.6 %; Neutrophils % (auto) 83.6 %; Platelet Count 330 K/uL (130-400); RDW Coefficient of Variation 12.1 % (11.5-14.5); RDW Standard Deviation 45.4 fL (36.4-46.3); Red Blood Count 3.63 M/uL (4.70-6.10)
[2024-06-05 08:40] LABS: Albumin Globulin Ratio 1.5 (0.9-2); Albumin Level 3.8 gm/dl (3.4-5.0); BUN Creatinine Ratio 19.2 (10-20); Bilirubin,Total 0.4 mg/dl (0.2-1.0); Calcium 8.9 mg/dl (8.6-10.3); Creatinine Clr Calc Pharmacy 69.4 ml/min; Est GFR (African American) 82.2 ml/min; Est GFR (Non-African American) 70.9 ml/min; Globulin 2.6 gm/dl (2.5-4.0); Potassium 3.8 mmol/L (3.5-5.1); Total Protein 6.4 gm/dl (6.0-8.3)
[2024-06-05 12:02] LABS: Appearance Urine Clear (Clear); Bilirubin Urine Negative (Negative); Blood Urine Negative (Negative); Color Urine Yellow; Glucose Urine UA Negative (Negative); Ketones Urine Negative (Negative); Leukocyte Esterase Urine Negative (Negative); Nitrite Urine Negative (Negative); Protein Urine Negative (Negative); Specific Gravity Urine 1.009 (1.000-1.030); Urobilinogen Urine Negative (Negative)
[2024-06-05] MEDS ORDERED: oxyCODONE HCL IR 5 MG TAB (IMMEDIATE RELEASE) PO PRN (12:58)
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
[2024-06-05] MEDS: oxyCODONE HCL IR 5 MG TAB (IMMEDIATE RELEASE) PO PRN (17:50)
[2024-06-06 09:00] LABS: Albumin Globulin Ratio 1.5 (0.9-2); Albumin Level 3.7 gm/dl (3.4-5.0); BUN Creatinine Ratio 20.7 (10-20); Bilirubin,Total 0.3 mg/dl (0.2-1.0); Calcium 9.3 mg/dl (8.6-10.3); Creatinine Clr Calc Pharmacy 78.5 ml/min; Est GFR (African American) 95.3 ml/min; Est GFR (Non-African American) 82.2 ml/min; Globulin 2.5 gm/dl (2.5-4.0); Magnesium 2.1 mg/dl (1.7-2.4); Potassium 4.5 mmol/L (3.5-5.1); Total Protein 6.2 gm/dl (6.0-8.3)
[2024-06-06 09:04] LABS: Basophils # (auto) 0.03 K/uL (0.00-0.20); Basophils % (auto) 0.6 %; Eosinophils # (auto) 0.15 K/uL (0.00-0.50); Eosinophils % (auto) 2.8 %; Hematocrit (blood only) 35.6 % (42.0-52.0); Hemoglobin 11.9 g/dl (14.0-18.0); Immature Granulocytes # (auto) 0.06 K/uL (0.01-0.20); Immature Granulocytes % (auto) 1.1 %; Lymphocytes # (auto) 1.48 K/uL (1.20-3.40); Lymphocytes % (auto) 27.8 %; Mean Corpuscular Hemoglobin 33.1 pg (25.0-34.0); Mean Corpuscular Hgb Conc 33.4 g/dL (32.0-36.0); Mean Corpuscular Volume 99.2 fL (80.0-100.0); Monocytes # (auto) 0.41 K/uL (0.11-0.59); Monocytes % (auto) 7.7 %; Neutrophils # (auto) 3.19 K/uL (1.40-6.50); Platelet Count 327 K/uL (130-400); RDW Standard Deviation 44.3 fL (36.4-46.3); Red Blood Count 3.59 M/uL (4.70-6.10); White Blood Count 5.32 K/ul (4.8-10.8)
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
== END 2024-06-06 16:44 | DRG 193 ==
LOC: SUATTDRO → ED 09:52 → EDINP 14:06 → SUATTDRO 14:06 → 2S 17:12 → 3N 05-24 07:38 → 2N 05-28 14:56
DX: F13.231 Sedative, hypnotic or anxiolytic dependence with withdrawal delirium; R44.3 Hallucinations, unspecified; V84.5XXA Driver of special agricultural vehicle injured in nontraffic accident, initial encounter; S00.01XA Abrasion of scalp, initial encounter; J18.9 Pneumonia, unspecified organism; S16.1XXA Strain of muscle, fascia and tendon at neck level, initial encounter; R41.0 Disorientation, unspecified; F17.220 Nicotine dependence, chewing tobacco, uncomplicated; F11.23 Opioid dependence with withdrawal; F10.231 Alcohol dependence with withdrawal delirium; I10 Essential (primary) hypertension; Z79.01 Long term (current) use of anticoagulants; J98.11 Atelectasis; N40.1 Benign prostatic hyperplasia with lower urinary tract symptoms; Z88.8 Allergy status to other drugs, medicaments and biological substances; G92.8 Other toxic encephalopathy; I48.91 Unspecified atrial fibrillation; K80.20 Calculus of gallbladder without cholecystitis without obstruction; F11.20 Opioid dependence, uncomplicated; S09.90XA Unspecified injury of head, initial encounter